=== PATIENT | male | born 1965 | race Caucasian/White ===

== ENCOUNTER 2021-02-19 05:06 | Emergency (ER) | payer BC, OTHER ==
--- NOTE | 2021-02-19 05:12 | NUR ---
BLOOD COLLECTED AND SENT TO LAB
--- NOTE | 2021-02-19 05:13 | NUR ---
PT ALSO HAD A SYNCOPAL EPISODE. PT DENIES HT
--- NOTE | 2021-02-19 05:13 | NUR ---
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 PT DENIES PAIN AT THIS TIME. PT AAOX4, VSS, RESPIRATIONS EVEN AND UNLABORED ON RA W/ AND NOTED. PT CONNECTED TO THE MONITOR AND POX
[2021-02-19] MEDS ORDERED: ONDANSETRON HCL/PF 4 MG/2 ML VIAL ONE (05:17)
[2021-02-19 05:22] LABS: BASOPHILS % (AUTO) 0.5 % (0.0-2.0); EOSINOPHILS % (AUTO) 3.6 % (0.0-6.0); HEMATOCRIT 43 % (39-51); HEMOGLOBIN 14.7 g/dL (13.5-17.5); LYMPHOCYTES # (AUTO) 2.3 /CMM (0.8-4.8); LYMPHOCYTES % (AUTO) 34.5 % (20.0-44.0); MEAN CORPUSCULAR HGB CONC 34 g/dl (31.0-36.0); MEAN CORPUSCULAR VOLUME 87 fL (80-96); MONOCYTES # (AUTO) 0.8 /CMM (0.1-1.30); MONOCYTES % (AUTO) 11.8 % (2.0-12.0); NEUTROPHILS # (AUTO) 3.4 /CMM (1.8-8.9); NEUTROPHILS % (AUTO) 49.6 % (43.0-81.0); PLATELET COUNT (AUTO) 278 /CMM (150-450); RED BLOOD CELL COUNT(AUTO) 4.91 MIL/uL (4.5-6.0); WHITE BLOOD COUNT (AUTO) 6.8 K/uL (4.3-11.0)
[2021-02-19 05:29] LABS: CALCIUM, SERUM 8.9 mg/dL (8.5-10.1); POTASSIUM 4.2 mmol/L (3.5-5.1)
[2021-02-19] MEDS ORDERED: IV NS 0.9% 1,000 ML BAG IV ONE (05:30)
[2021-02-19] MEDS ORDERED: ONDANSETRON HCL/PF 4 MG/2 ML VIAL IVP ONE (05:30)
[2021-02-19 05:35] LABS: ALBUMIN 3.7 g/dL (3.4-5.0); BILIRUBIN,DIRECT 0.1 mg/dL (0.0-0.2); BILIRUBIN,TOTAL 0.4 mg/dL (0.2-1.0); TOTAL PROTEIN, SERUM 6.9 g/dL (6.4-8.2)
--- NOTE | 2021-02-19 05:39 | NUR ---
pt returned from radiology
--- NOTE | 2021-02-19 06:47 | NUR ---
urine collected and sent to lab
[2021-02-19 07:44] LABS: BILIRUBIN,URINE Negative (NEGATIVE); COLOR,URINE YELLOW (YELLOW); LEUKOCYTE ESTERASE ,URINE Negative (NEGATIVE); NITRITE, URINE Negative (NEGATIVE); PH,URINE 5.5 (5.0-8.0); PROTEIN,URINE Negative (NEGATIVE); UGLUCOSE Negative (NEGATIVE); UROBILINOGEN,URINE 0.2 EU/dL (0.2)
--- NOTE | 2021-02-19 07:50 | NUR ---
DR. CARSON AT BEDSIDE, EXPLAINING ACI. PATIENT RESTING, IN NO DISTRESS.
[2021-02-19 07:55] VITALS: BP 122/75
[2021-02-19 07:56] LABS: RBC,URINE TOO NUMEROUS TO COUN /HPF (0-2)
[2021-02-19 07:57] LABS: BACTERIA,URINE Few /HPF (None Seen); SQUAMOUS EPITHELIAL CELL,UR Few /HPF (None Seen)
--- NOTE | 2021-02-19 08:01 | NUR ---
IV removed. Catheter intact and site benign. Pressure and 4x4 applied to site. No bleeding noted.Patient discharged to home in stable condition. Written and verbal after care instructions given. Patient verbalizes understanding of instruction.
== END 2021-02-19 08:03 | disposition home or self-care (01) ==
LOC: ER 05:08
DX: E83.59 Other disorders of calcium metabolism (principal); N29 Other disorders of kidney and ureter in diseases classified elsewhere; R31.9 Hematuria, unspecified; R74.8 Abnormal levels of other serum enzymes; R42 Dizziness and giddiness
CPT/HCPCS: 36415; 74176; 80048; 80076; 81001; 82962; 83690; 85025; 87086; 93005; 96361; 96374; 99285; J2405; J7030